=== PATIENT | female | born 1960 | race Caucasian/White ===

== ENCOUNTER → 2020-02-28 | Outpatient (CLI) | payer MEDICARE, OTHER ==
--- NOTE | 2020-02-28 15:24 | P.HPBAR ---
Bariatric H&P - History & Physicial H&P Date: 02/28/20 History & Physicial: Visit/CC: Patient initial contact: Initial weight: Initial weight in pounds: Height: 5 ft 4 in Initial BMI: Last weight: Current weight: 135.488 kg Current weight in pounds: Current BMI: [place] body weight (based on NIH guidelines): Excess body weight loss: The patient is a 59 year-old F who presents for Bariatric Assessment. She is looking into the lap band or sleeve. She has reflux. She takes o meprazole. She can tolerate 2 days off her medication. No gallbladder. No dysphagia. She has hysterectomy. No bowel obstruction. No stomach or esophageal cancer. She has family history of obesity in father, grand parents. She does not want issues. No back pain. She has thrown out her hips. She has knee replacement of both at least 2x on each side. She was antibiotics right knee with osteomyelitis. She was very active in sports. Highest weight is present. She has tried dieting with most weight loss down to 280 pounds. She developed DVT following knee surgery Bariatric Checklist Checklist: Plan: Checklist: EGD: 1. Hiatal hernia: 2. H. Pylori: HgbA1c: Vitamin D: Smoking: Primary care physician referral: Psychiatry clearance: Cardiology clearance: Sleep study: Diet journal: VTE risk score: VTE risk level: Rehab needs at discharge:
[2020-02-28 15:45] VITALS: BP 160/86; PULSE 88; RESP 18; TEMP 97.8; BMI 51.2
== END | disposition home or self-care (01) ==
LOC: BARWHC3 14:57
PROVIDERS: ATTEND Surgery Plastic and Reconstructive Surgery
DX: K21.9 Gastro-esophageal reflux disease without esophagitis (principal); M86.9 Osteomyelitis, unspecified; T81.89XA Other complications of procedures, not elsewhere classified, initial encounter; I82.409 Acute embolism and thrombosis of unspecified deep veins of unspecified lower extremity; Z96.653 Presence of artificial knee joint, bilateral; Z83.49 Family history of other endocrine, nutritional and metabolic diseases; Z79.2 Long term (current) use of antibiotics; Z79.899 Other long term (current) drug therapy
CPT/HCPCS: 99211

== ENCOUNTER → 2020-02-28 | Outpatient (CLI) | payer MEDICARE, OTHER ==
[2020-02-28 18:35] LABS: HGB 13.6 gm/dL (11.4-16.0); MCH 28.8 pg (25.0-35.0); MCHC 33.1 g/dL (31.0-37.0); Mean Platelet Volume 6.7; Platelet Count 256 k/uL (150-450); RBC 4.71 m/uL (3.80-5.40); RDW 13.1 % (11.5-15.5)
[2020-02-28 19:17] LABS: ALT 25 U/L (4-34); AST 23 U/L (14-36); African American GFR (CKD) >90 (>60 ml/min/1.73 sqM); Albumin 4.1 g/dL (3.5-5.0); Alkaline Phosphatase 77 U/L (38-126); Anion Gap 6 mmol/L; Blood Urea Nitrogen 21 mg/dL (7-17); Carbon Dioxide 27 mmol/L (22-30); Chloride 104 mmol/L (98-107); Glucose 129 mg/dL (74-99); Magnesium 2.1 mg/dL (1.6-2.3); Non-African American GFR(CKD) 80 (>60 ml/min/1.73 sqM); Phosphorus 4.3 mg/dL (2.5-4.5); Potassium 4.4 mmol/L (3.5-5.1); Sodium 137 mmol/L (137-145); Total Bilirubin 0.7 mg/dL (0.2-1.3); Total Protein 6.7 g/dL (6.3-8.2)
[2020-02-28 19:54] LABS: Cholesterol 233 mg/dL (<200); HDL Cholesterol 72 mg/dL (40-60); LDL Cholesterol,Calculated 137 mg/dL (0-99); Triglycerides 119 mg/dL (<150)
[2020-02-28 20:08] LABS: Partial Thromboplastin Time 24.7 sec (22.0-30.0); Prothrombin Time 10.1 sec (9.0-12.0)
[2020-02-29 06:52] LABS: % Iron Saturation 21.72 (12.00-45.00); Iron 86 ug/dL (50-170); Total Iron Binding Capacity 396 ug/dL (228-460)
[2020-02-29 07:10] LABS: Folate, Serum 10.6 ng/mL
[2020-03-01 13:17] LABS: Zinc, Serum 83 ug/dL (60-130)
[2020-03-03 02:36] LABS: Selenium 118 mcg/L (63-160)
== END | disposition home or self-care (01) ==
LOC: LABPAT 16:12
PROVIDERS: ATTEND Surgery Plastic and Reconstructive Surgery
DX: D50.8 Other iron deficiency anemias (principal); K90.89 Other intestinal malabsorption; E55.9 Vitamin D deficiency, unspecified; K74.1 Hepatic sclerosis; N19 Unspecified kidney failure; K50.90 Crohn's disease, unspecified, without complications; E66.01 Morbid (severe) obesity due to excess calories
CPT/HCPCS: 80053; 80061; 82306; 82525; 82607; 82728; 82746; 83036; 83540; 83550; 83735; 83970; 84100; 84134; 84255; 84425; 84443; 84590; 84630; 85027; 85610; 85730; 93005

== ENCOUNTER → 2020-05-20 | Outpatient (CLI) | payer MEDICARE, OTHER ==
[2020-05-20 13:11] VITALS: BMI 53.1
== END ==
LOC: BARWHC3 08:59
PROVIDERS: ATTEND Surgery Plastic and Reconstructive Surgery
DX: E66.01 Morbid (severe) obesity due to excess calories (principal); Z71.3 Dietary counseling and surveillance
CPT/HCPCS: 97804

== ENCOUNTER 2020-05-27 07:30 | Day surgery (SDC) | payer MEDICARE, OTHER ==
--- NOTE | 2020-05-27 13:52 | P.GSHP ---
History of Present Illness H&P Date: 05/27/20 CHIEF COMPLAINT: GERD HISTORY OF PRESENT ILLNESS: The patient is a 59-year-old female who presents reports gastroesophageal reflux disease. Upper endoscopy was offered for further evaluation and management. PAST MEDICAL HISTORY: Please see list. PAST SURGICAL HISTORY: Please see list. MEDICATIONS: Please see list. ALLERGIES: Please see list. SOCIAL HISTORY: No illicit drug use FAMILY HISTORY: No reports of Crohn disease or ulcerative colitis. REVIEW OF ORGAN SYSTEMS: CONSTITUTIONAL: No reports of fevers or chills. GI: Denies any blood in stools or constipation. PHYSICAL EXAM: VITAL SIGNS: Stable GENERAL: Well-developed and pleasant in no acute distress. HEENT: No scleral icterus. Extraocular movements grossly intact. Moist buccal mucosa. NECK: Supple without lymphadenopathy. CHEST: Unlabored respirations. Equal bilateral excursions. CARDIOVASCULAR: Regular rate and rhythm. Distal 2+ pulses. ABDOMEN: Soft, nondistended. MUSCULOSKELETAL: No clubbing, cyanosis, or edema. ASSESSMENT: 1. Gastroesophageal reflux disease PLAN: 1. Recommend proceeding with an upper endoscopy Past Medical History Past Medical History: Asthma, Deep Vein Thrombosis (DVT), Fibromyalgia, GERD/Reflux, Hypertension Additional Past Medical History / Comment(s): DVT LT LEG AFTER KNEE REPLACEMENT, LYMPHEDEMA History of Any Multi-Drug Resistant Organisms: None Reported Past Surgical History: Adenoidectomy, Appendectomy, Bladder Surgery, Cholecystectomy, Hysterectomy, Joint Replacement, Orthopedic Surgery, Tonsillectomy Additional Past Surgical History / Comment(s): bilat knee replacements; bilat shoulder surgery; bone removed from right pinky toe; deviated septum; bladder suspension, REMOVAL OF BLOOD CLOT FROM LEFT LEG Past Anesthesia/Blood Transfusion Reactions: Postoperative Nausea & Vomiting (PONV) Additional Past Anesthesia/Blood Transfusion Reaction / Comment(s): "i like to sleep, i do not like to wake up" Smoking Status: Never smoker - Past Family History Sister(s) Family Medical History: Cancer Medications and Allergies Home Medications Medication Instructions Recorded Confirmed Type Albuterol Nebulized [Ventolin 3 ml INHALATION DIRECTED 02/28/20 05/27/20 History Nebulized] Apixaban [Eliquis] 5 mg PO BID 02/28/20 05/27/20 History Cetirizine HCl [Zyrtec] 10 mg PO DAILY 02/28/20 05/27/20 History Cholecalciferol [Vitamin D3 (25 1,000 unit PO DAILY 02/28/20 05/27/20 History Mcg = 1000 Iu)] Gabapentin 600 mg PO TID 02/28/20 05/27/20 History Lisinopril [Prinivil] 10 mg PO DAILY 02/28/20 05/27/20 History Meloxicam 15 mg PO DAILY 02/28/20 05/27/20 History Montelukast [Singulair] 10 mg PO DAILY 02/28/20 05/27/20 History Omeprazole 40 mg PO DAILY 02/28/20 05/27/20 History rOPINIRole HCL [Requip] 0.5 mg PO TID 02/28/20 05/27/20 History traMADol HCl [Ultram] 50 mg PO BID PRN 02/28/20 05/27/20 History Oxybutynin Chloride [Ditropan] 5 mg PO BID 04/22/20 05/27/20 History HYDROcodone/APAP 7.5-325MG [[place] 7.5 mg PO Q6HR PRN 05/27/20 05/27/20 History 7.5-325] Allergies Allergy/AdvReac Type Severity Reaction Status Date / Time Sulfa (Sulfonamide AdvReac Rash/Hives Verified 05/27/20 13:28 Antibiotics)
[2020-05-27] MEDS ORDERED: MIDAZOLAM 2 MG/2 ML VIAL ONE (13:55)
[2020-05-27] MEDS ORDERED: KETAMINE 10 MG/ML 20 ML VIAL ONE (13:55)
[2020-05-27] MEDS ORDERED: LACTATED RINGERS 1,000 ML BAG IV ONE (13:55)
[2020-05-27] MEDS ORDERED: LIDOCAINE 1% INJ 10MG/ML (20 ML MDV) ONE (13:55)
[2020-05-27] MEDS ORDERED: PROPOFOL 10 MG/ML 20 ML VIAL IV ONE (13:55)
[2020-05-27 14:33] VITALS: BP 120/75; PULSE 75; RESP 16
--- NOTE | 2020-05-28 13:42 | P.GSHP ---
History of Present Illness H&P Date: 05/27/20 CHIEF COMPLAINT: GERD HISTORY OF PRESENT ILLNESS: The patient is a 59-year-old female who presents reports gastroesophageal reflux disease. Upper endoscopy was offered for further evaluation and management. PAST MEDICAL HISTORY: Please see list. PAST SURGICAL HISTORY: Please see list. MEDICATIONS: Please see list. ALLERGIES: Please see list. SOCIAL HISTORY: No illicit drug use FAMILY HISTORY: No reports of Crohn disease or ulcerative colitis. REVIEW OF ORGAN SYSTEMS: CONSTITUTIONAL: No reports of fevers or chills. GI: Denies any blood in stools or constipation. PHYSICAL EXAM: VITAL SIGNS: Stable GENERAL: Well-developed and pleasant in no acute distress. HEENT: No scleral icterus. Extraocular movements grossly intact. Moist buccal mucosa. NECK: Supple without lymphadenopathy. CHEST: Unlabored respirations. Equal bilateral excursions. CARDIOVASCULAR: Regular rate and rhythm. Distal 2+ pulses. ABDOMEN: Soft, nondistended. MUSCULOSKELETAL: No clubbing, cyanosis, or edema. ASSESSMENT: 1. Gastroesophageal reflux disease PLAN: 1. Recommend proceeding with an upper endoscopy Past Medical History Past Medical History: Asthma, Deep Vein Thrombosis (DVT), Fibromyalgia, GERD/Reflux, Hypertension Additional Past Medical History / Comment(s): DVT LT LEG AFTER KNEE REPLACEMENT, LYMPHEDEMA History of Any Multi-Drug Resistant Organisms: None Reported Past Surgical History: Adenoidectomy, Appendectomy, Bladder Surgery, Cholecystectomy, Hysterectomy, Joint Replacement, Orthopedic Surgery, Tonsillectomy Additional Past Surgical History / Comment(s): bilat knee replacements; bilat shoulder surgery; bone removed from right pinky toe; deviated septum; bladder suspension, REMOVAL OF BLOOD CLOT FROM LEFT LEG Past Anesthesia/Blood Transfusion Reactions: Postoperative Nausea & Vomiting (PONV) Additional Past Anesthesia/Blood Transfusion Reaction / Comment(s): "i like to sleep, i do not like to wake up" Smoking Status: Never smoker - Past Family History Sister(s) Family Medical History: Cancer Medications and Allergies Home Medications Medication Instructions Recorded Confirmed Type Albuterol Nebulized [Ventolin 3 ml INHALATION DIRECTED 02/28/20 05/27/20 History Nebulized] Apixaban [Eliquis] 5 mg PO BID 02/28/20 05/27/20 History Cetirizine HCl [Zyrtec] 10 mg PO DAILY 02/28/20 05/27/20 History Cholecalciferol [Vitamin D3 (25 1,000 unit PO DAILY 02/28/20 05/27/20 History Mcg = 1000 Iu)] Gabapentin 600 mg PO TID 02/28/20 05/27/20 History Lisinopril [Prinivil] 10 mg PO DAILY 02/28/20 05/27/20 History Meloxicam 15 mg PO DAILY 02/28/20 05/27/20 History Montelukast [Singulair] 10 mg PO DAILY 02/28/20 05/27/20 History Omeprazole 40 mg PO DAILY 02/28/20 05/27/20 History rOPINIRole HCL [Requip] 0.5 mg PO TID 02/28/20 05/27/20 History traMADol HCl [Ultram] 50 mg PO BID PRN 02/28/20 05/27/20 History Oxybutynin Chloride [Ditropan] 5 mg PO BID 04/22/20 05/27/20 History HYDROcodone/APAP 7.5-325MG [[place] 7.5 mg PO Q6HR PRN 05/27/20 05/27/20 History 7.5-325] Allergies Allergy/AdvReac Type Severity Reaction Status Date / Time Sulfa (Sulfonamide AdvReac Rash/Hives Verified 05/27/20 13:28 Antibiotics) Surgical - Exam Vital Signs Temp Pulse Resp BP Pulse Ox 98.9 F 78 18 133/65 96 05/27/20 13:36 05/27/20 13:36 05/27/20 13:36 05/27/20 13:36 05/27/20 13:36
--- NOTE | 2020-05-28 13:43 | P.PCN ---
Date of Procedure: 05/27/20 Description of Procedure: PREOPERATIVE DIAGNOSIS: Gastroesophageal reflux disease. Morbid obesity. POSTOPERATIVE DIAGNOSIS: Morbid obesity. Gastritis. Gastroesophageal reflux disease. Gastric polyp OPERATION: Esophagogastroduodenoscopy with biopsies along antrum. SURGEON: Marta Bee MD ANESTHESIA: MAC. INDICATIONS: The patient is a 59-year-old female who presents with a history of reflux disease. Benefits and risks of the procedure were described. Informed consent was obtained. DESCRIPTION: The patient was brought into the endoscopy suite and laid in the left lateral decubitus position. An Olympus gastroscope was passed along the posterior oropharynx down to the distal esophagus where the squamocolumnar junction was encountered at 36 cm from the incisors. The stomach was entered and no bile reflux was found. Additional findings are listed below. Biopsies with cold forceps were obtained of the antrum. The first through third portion of the duodenum was examined and unremarkable. Retroflexion of the scope confirmed Hill grade 2 lower esophageal valve. The squamocolumnar junction demonstrated LA grade B erosive esophagitis. The stomach was desufflated. The patient tolerated the procedure well. FINDINGS: Squamocolumnar junction 36 cm from the incisors. Diaphragmatic hiatus at 36 cm. Hill grade 2 lower esophageal valve. LA grade B erosive esophagitis. No active duodenitis. Chronic gastritis Diffuse gastric polyps RECOMMENDATIONS: Upper endoscopy as needed. Plan - Discharge Summary New Discharge Prescriptions: No Action Cholecalciferol [Vitamin D3 (25 Mcg = 1000 Iu)] 1,000 unit PO DAILY Cetirizine HCl [Zyrtec] 10 mg PO DAILY rOPINIRole HCL [Requip] 0.5 mg PO TID Omeprazole 40 mg PO DAILY Gabapentin 600 mg PO TID Apixaban [Eliquis] 5 mg PO BID Montelukast [Singulair] 10 mg PO DAILY Meloxicam 15 mg PO DAILY Lisinopril [Prinivil] 10 mg PO DAILY traMADol HCl [Ultram] 50 mg PO BID PRN PRN Reason: Pain Albuterol Nebulized [Ventolin Nebulized] 3 ml INHALATION DIRECTED Oxybutynin Chloride [Ditropan] 5 mg PO BID HYDROcodone/APAP 7.5-325MG [[place] 7.5-325] 7.5 mg PO Q6HR PRN PRN Reason: Moderate Pain Discharge Medication List Albuterol Nebulized [Ventolin Nebulized] 3 ml INHALATION DIRECTED 02/28/20 [History] Apixaban [Eliquis] 5 mg PO BID 02/28/20 [History] Cetirizine HCl [Zyrtec] 10 mg PO DAILY 02/28/20 [History] Cholecalciferol [Vitamin D3 (25 Mcg = 1000 Iu)] 1,000 unit PO DAILY 02/28/20 [History] Gabapentin 600 mg PO TID 02/28/20 [History] Lisinopril [Prinivil] 10 mg PO DAILY 02/28/20 [History] Meloxicam 15 mg PO DAILY 02/28/20 [History] Montelukast [Singulair] 10 mg PO DAILY 02/28/20 [History] Omeprazole 40 mg PO DAILY 02/28/20 [History] rOPINIRole HCL [Requip] 0.5 mg PO TID 02/28/20 [History] traMADol HCl [Ultram] 50 mg PO BID PRN 02/28/20 [History] Oxybutynin Chloride [Ditropan] 5 mg PO BID 04/22/20 [History] HYDROcodone/APAP 7.5-325MG [[place] 7.5-325] 7.5 mg PO Q6HR PRN 05/27/20 [History] Follow up Appointment(s)/Referral(s): Marta Bee MD [STAFF PHYSICIAN] - 06/05/20 1:30 pm Patient Instructions/Handouts: *Surgery [facility] - (Anesthesia) Endoscopy Discharge Instructions, Gastric Polyps (DC) Discharge Disposition: HOME SELF-CARE
== END 2020-05-27 14:48 | disposition home or self-care (01) ==
LOC: ORWHC2ENDO 07:30
PROVIDERS: ATTEND Surgery Plastic and Reconstructive Surgery
DX: K29.50 Unspecified chronic gastritis without bleeding (principal); K21.00 Gastro-esophageal reflux disease with esophagitis, without bleeding; K31.7 Polyp of stomach and duodenum; J45.909 Unspecified asthma, uncomplicated; M79.7 Fibromyalgia; Z80.9 Family history of malignant neoplasm, unspecified; E66.01 Morbid (severe) obesity due to excess calories; I10 Essential (primary) hypertension; Z79.01 Long term (current) use of anticoagulants; Z79.1 Long term (current) use of non-steroidal anti-inflammatories (NSAID); Z79.899 Other long term (current) drug therapy; Z86.718 Personal history of other venous thrombosis and embolism; Z88.2 Allergy status to sulfonamides; Z96.653 Presence of artificial knee joint, bilateral
CPT/HCPCS: 88305; 43239; J2250; J2001; J2704

== ENCOUNTER → 2020-06-05 | Outpatient (CLI) | payer MEDICARE, OTHER ==
[2020-06-05 14:58] VITALS: BP 167/102; PULSE 73; RESP 20; TEMP 98.8; BMI 52.7
--- NOTE | 2020-06-05 15:12 | P.PN ---
Subjective Progress Note Date: 06/05/20 She comes in for sleeve gastrectomy. She completed her upper endoscopy without contra-indications. Needs PCP letter and psych. Objective - Vital Signs Vital signs: Vital Signs Temp 98.8 F 06/05/20 14:49 Pulse 73 06/05/20 14:49 Resp 20 06/05/20 14:49 BP 167/102 06/05/20 14:49 Pulse Ox Intake & Output 06/04/20 06/05/20 06/05/20 18:59 06:59 18:59 Weight 139.253 kg
== END ==
LOC: BARWHC3 13:35
PROVIDERS: ATTEND Surgery Plastic and Reconstructive Surgery
DX: E66.01 Morbid (severe) obesity due to excess calories (principal); Z46.51 Encounter for fitting and adjustment of gastric lap band; Z98.84 Bariatric surgery status
CPT/HCPCS: 99211

== ENCOUNTER → 2020-07-01 | Outpatient (CLI) | payer MEDICARE, OTHER ==
[2020-07-01 16:38] LABS: Basophils % (A) 1 %; Eosinophils # (A) 0.1 k/uL (0-0.7); Eosinophils % (A) 2 %; HCT 39.8 % (34.0-46.0); HGB 13.8 gm/dL (11.4-16.0); Lymphocytes # (A) 0.9 k/uL (1.0-4.8); Lymphocytes % (A) 21 %; MCH 29.7 pg (25.0-35.0); MCHC 34.6 g/dL (31.0-37.0); MCV 85.6 fL (80.0-100.0); Mean Platelet Volume 6.9; Monocytes # (A) 0.2 k/uL (0-1.0); Monocytes % (A) 5 %; Neutrophils % (A) 70 %; Platelet Count 232 k/uL (150-450); RBC 4.65 m/uL (3.80-5.40); RDW 13.3 % (11.5-15.5); WBC 4.3 k/uL (3.8-10.6)
[2020-07-01 17:55] LABS: Albumin 4.6 g/dL (3.5-5.0); Calcium 9.6 mg/dL (8.4-10.2); Potassium 4.5 mmol/L (3.5-5.1); Total Bilirubin 0.9 mg/dL (0.2-1.3); Total Protein 7.2 g/dL (6.3-8.2)
== END | disposition home or self-care (01) ==
LOC: LABPAT 15:21
PROVIDERS: ATTEND Surgery Plastic and Reconstructive Surgery
DX: Z01.818 Encounter for other preprocedural examination (principal)
CPT/HCPCS: 36415; 80053; 85025; 86850; 86900; 86901

== ENCOUNTER 2020-07-05 12:17 | Inpatient (IN) | payer MEDICARE, OTHER ==
--- NOTE | 2020-07-05 06:00 | P.GSHP ---
History of Present Illness H&P Date: 07/05/20 DATE OF SERVICE: 07/05/2020 CHIEF COMPLAINT: Morbid obesity HISTORY OF PRESENT ILLNESS: Sybil Rodriguez is a 59-year-old female who comes with lifelong morbid obesity. She is looking into sleeve gastrectomy. She has gastroesophageal reflux. She takes omeprazole. Her highest weight is present. She has completed bariatric medical supervised weight loss, education, including medical and cardiac risk assessments. At height of 5 feet 4 inches, her ideal body weight is 144 pounds. She comes in 298 pounds. Her body mass index is 51.3. She is 154 pounds overweight. PAST MEDICAL HISTORY: 1. Morbid obesity due to excess calories 2. Body mass index of 51.3, initial 3. Chronic obstructive pulmonary disease 4. Fibromylagia 5. Asthma 6. Gastroesophageal reflux disease 7. Hypertensive heart disease. 8. Osteoarthritis of the knees. 9. Postop nausea and vomiting 10. Osteoarthritis of the hips 11. Osteomyelitis of the knees. PAST SURGICAL HISTORY: 1. Adenoidectomy 2. Appendectomy 3. Bladder suspension 4. Cholecystectomy 5. Hysterectomy 6. Bilateral knee replacement 7. Tonsillectomy 8. Bilateral shoulder repair 9. Repair of deviated septum HOME MEDICATIONS: Home Medications Medication Instructions Recorded Confirmed Albuterol Nebulized [Ventolin 3 ml INHALATION DIRECTED 02/28/20 04/22/20 Nebulized] Apixaban [Eliquis] 5 mg PO BID 02/28/20 04/22/20 Cetirizine HCl [Zyrtec] 10 mg PO DAILY 02/28/20 04/22/20 Cholecalciferol [Vitamin D3 (25 1,000 unit PO DAILY 02/28/20 04/22/20 Mcg = 1000 Iu)] Gabapentin 600 mg PO TID 02/28/20 04/22/20 Imipramine [Tofranil] 10 mg PO TID 02/28/20 04/22/20 Lisinopril [Prinivil] 10 mg PO DAILY 02/28/20 04/22/20 Meloxicam 15 mg PO DAILY 02/28/20 04/22/20 Montelukast [Singulair] 10 mg PO DAILY 02/28/20 04/22/20 Omeprazole 40 mg PO DAILY 02/28/20 04/22/20 rOPINIRole HCL [Requip] 0.5 mg PO TID 02/28/20 04/22/20 traMADol HCl [Ultram] 50 mg PO BID PRN 02/28/20 04/22/20 Oxybutynin Chloride [Ditropan] 5 mg PO BID 04/22/20 04/22/20 ALLERGIES: Allergies Allergy/AdvReac Type Severity Reaction Status Date / Time Sulfa (Sulfonamide AdvReac Rash/Hives Verified 04/22/20 15:45 Antibiotics) SOCIAL HISTORY: Past tobacco use. FAMILY HISTORY: No family history of ulcerative colitis disease or Crohn's disease. Family history of morbid obesity. No lupus in the family. No reports of stomach or esophageal cancer. REVIEW OF ORGAN SYSTEMS: CONSTITUTIONAL: At height of 5 feet 4 inches, her ideal body weight is 144 pounds. She comes in 298 pounds. Her body mass index is 51.3. She is 154 pounds overweight. HEENT: Denies any active troubles with vision or hearing. ENDOCRINE: Denies diabetes. No hypothyroidism. CARDIOVASCULAR: Denies past reports of palpitations or heart attacks or chest pain. Has hypertensive heart disease. RESPIRATORY: Has asthma. Has chronic obstructive pulmonary disease. GASTROINTESTINAL: Denies any bright red blood per rectum. No diarrhea. No constipation. Has gastroesophageal reflux disease. GENITOURINARY: Has bladder urgency. No recent blood in urine MUSCULOSKELETAL: Has lower back pain and joint pain. Has osteoarthritis of the knees. History of bilateral lower extremity edema. NEURO: No headaches. No seizure disorders. Has neuropathy. PSYCH: Has depression. No suicidal ideation. RHEUMATOLOGIC: No lupus. No rheumatoid arthritis. HEMATOLOGIC: Denies any abnormal bleeding or bruising. DVT following knee surgery. On blood thinners. SKIN: No rash. No skin cancer. PHYSICAL EXAM: VITAL SIGNS: Height 5 foot 4 inches, weight 298 pounds. BMI 51.3 Intake & Output 07/04/20 07/04/20 07/05/20 06:59 18:59 06:59 Weight 132.903 kg GENERAL: Well-developed in no acute distress. HEENT: No scleral icterus. Extraocular movements grossly intact. Hears conversational speech. No nasal drainage. NECK: Supple without lymphadenopathy. CHEST: Nonlabored respirations with equal bilateral excursions. CARDIOVASCULAR: Regular rate and regular rhythm. Distal 2+ pulses. ABDOMEN: Obese, soft, nontender, nondistended. MUSCULOSKELETAL: No clubbing, cyanosis. NEURO: No focal or lateralizing signs. Cranial nerves 2 through 12 grossly within normal limits. PSYCH: Appropriate affect. Alert and oriented to person, place and time. SKIN: Good skin turgor. Well perfused. ASSESSMENT: 1. Morbid obesity due to excess calories 2. Body mass index of 51.3, initial 3. Chronic obstructive pulmonary disease 4. Fibromylagia 5. Asthma 6. Gastroesophageal reflux disease 7. Hypertensive heart disease. 8. Osteoarthritis of the knees. 9. Postop nausea and vomiting 10. Osteoarthritis of the hips 11. Osteomyelitis of the knees. PLAN: 1. Bariatric options between a sleeve, band and a [place]-en-Y gastric bypass were reviewed in detail. The patient elected for a sleeve gastrectomy. Robotic assisted approach described. 2. The [place] [facility] Data was also reviewed with benefits and risks as described. 3. An 8 page second-generation bariatric consent form was reviewed in detail including potential of bleeding, infection, leaks, adequate weight loss, nutritional deficiencies which the patient demonstrated understanding of the risks. 4. A 2 week high-protein low caloric 800 kcal diet described to address hepatomegaly. 5. Preoperative labs including complete metabolic panel and CBC with type and screen recommended. 6. DVT prophylaxis per [place] [facility]. 7. Antibiotic prophylaxis. 8. Inpatient hospitalization anticipated for more than 2 nights. 9. All questions and concerns were addressed with the patient. 10. She is elevated risk with history of DVT and blood thinners for bleeding and complications. Past Medical History Past Medical History: Asthma, Deep Vein Thrombosis (DVT), Fibromyalgia, GERD/Reflux, Hypertension Additional Past Medical History / Comment(s): DVT LT LEG AFTER KNEE REPLACEMENT, LYMPHEDEMA; History of Any Multi-Drug Resistant Organisms: None Reported Past Surgical History: Adenoidectomy, Appendectomy, Bladder Surgery, Cholecystectomy, Hysterectomy, Joint Replacement, Orthopedic Surgery, Tonsil lectomy Additional Past Surgical History / Comment(s): bilat knee replacements; bilat shoulder surgery; bone removed from right pinky toe; deviated septum; bladder suspension, REMOVAL OF BLOOD CLOT FROM LEFT LEG, EGD Past Anesthesia/Blood Transfusion Reactions: Postoperative Nausea & Vomiting (PONV) Additional Past Anesthesia/Blood Transfusion Reaction / Comment(s): "i like to sleep, i do not like to wake up" Smoking Status: Never smoker - Past Family History Sister(s) Family Medical History: Cancer Medications and Allergies Home Medications Medication Instructions Recorded Confirmed Type Albuterol Nebulized [Ventolin 3 ml INHALATION DIRECTED 02/28/20 07/04/20 History Nebulized] Apixaban [Eliquis] 5 mg PO BID 02/28/20 07/04/20 History Cetirizine HCl [Zyrtec] 10 mg PO DAILY 02/28/20 07/04/20 History Cholecalciferol [Vitamin D3 (25 1,000 unit PO DAILY 02/28/20 07/04/20 History Mcg = 1000 Iu)] Gabapentin 600 mg PO TID 02/28/20 07/04/20 History Lisinopril [Prinivil] 10 mg PO DAILY 02/28/20 07/04/20 History Meloxicam 15 mg PO DAILY 02/28/20 07/04/20 History Montelukast [Singulair] 10 mg PO DAILY 02/28/20 07/04/20 History Omeprazole 40 mg PO DAILY 02/28/20 07/04/20 History rOPINIRole HCL [Requip] 0.5 mg PO TID 02/28/20 07/04/20 History traMADol HCl [Ultram] 50 mg PO BID PRN 02/28/20 07/04/20 History HYDROcodone/APAP 7.5-325MG [[place] 7.5 mg PO Q6HR PRN 05/27/20 07/04/20 History 7.5-325] Darifenacin Hydrobromide 15 mg PO DAILY 06/05/20 07/04/20 History [Darifenacin ER] metFORMIN HCL [Glucophage] 500 mg PO BID 06/05/20 07/04/20 History Allergies Allergy/AdvReac Type Severity Reaction Status Date / Time Sulfa (Sulfonamide AdvReac Rash/Hives Verified 07/04/20 11:17 Antibiotics)
[~2020-07-05 12:17] MED LIST: ACETAMINOPHEN TAB 500 MG TAB PO PRN; CHLORHEXIDINE GLUCONATE 15 ML CUP MUCOUS MEM PRN; DEXAMETHASONE SOD PHOSPHATE 4 MG/ML 1 ML VIAL IV ONE; ENOXAPARIN 40 MG/0.4 ML SYRINGE SQ PRN; GABAPENTIN 300 MG CAP PO PRN; HYDROmorphone 0.5 MG/0.5 ML SYRINGE IVP PRN; LIDOCAINE 1% (10MG/ML) FOR IV START INTRADERMA PRN; MIDAZOLAM 2 MG/2 ML VIAL IV PRN; ONDANSETRON 4 MG/2 ML VIAL IVP ONE; PANTOPRAZOLE 40 MG/10 ML VIAL IVP PRN; SCOPOLAMINE 1.5MG/72HR PATCH TRANSDERM PRN; ceFAZolin 3 GM in SODIUM CHLORIDE 0.9% 100 ML IVPB PRN
[2020-07-05 13:20] LABS: Glucose,Whole Blood 113 mg/dL (75-99)
[2020-07-05] MEDS: LACTATED RINGERS 1,000 ML IV SCH (13:20)
[2020-07-05] MEDS ORDERED: MIDAZOLAM 2 MG/2 ML VIAL IVP ONE (13:40)
--- NOTE | 2020-07-05 13:56 | P.ANPRN ---
Procedure Note - Anesthesia - Nerve Block Performed Bilateral Transversus Abdominis Single Time Out Performed: Yes Date of Procedure: 07/05/20 Procedure Start Time: 13:39 Procedure Stop Time: 13:45 Location of Patient: PreOp Indication: Acute Post-Operative Pain, Dx/Pain Location, Requested by Surgeon Sedation Type: Sedate with meaningful contact maintained Preparation: Sterile Prep Position: Supine Catheter: None Needle Types: [place] Needle Gauge: 21 Ultrasound used to visualize needle placement: Yes Ultrasound used to observe medication spread: Yes Injectate: 0.5% Ropivacaine (see comment for volume) (30cc total) Blood Aspirated: No Pain Paresthesia on Injection Noted: No Resistance on Injection: Normal Image Stored and Saved: Yes Events: Uneventful and Well Tolerated
[2020-07-05 14:02] LABS: ALT 43 U/L (4-34); AST 40 U/L (14-36); African American GFR (CKD) >90 (>60 ml/min/1.73 sqM); Albumin 4.5 g/dL (3.5-5.0); Alkaline Phosphatase 72 U/L (38-126); Anion Gap 8 mmol/L; Blood Urea Nitrogen 18 mg/dL (7-17); Calcium 9.2 mg/dL (8.4-10.2); Carbon Dioxide 22 mmol/L (22-30); Chloride 107 mmol/L (98-107); Glucose 105 mg/dL (74-99); Non-African American GFR(CKD) >90 (>60 ml/min/1.73 sqM); Potassium 4.6 mmol/L (3.5-5.1); Sodium 137 mmol/L (137-145); Total Bilirubin 1.3 mg/dL (0.2-1.3); Total Protein 7.1 g/dL (6.3-8.2)
[2020-07-05 14:10] LABS: INR 1.1 (<1.2); Prothrombin Time 11.2 sec (9.0-12.0)
[2020-07-05] MEDS ORDERED: NEOSTIGMINE 1 MG/ML 10 ML VIAL ONE (14:25)
[2020-07-05] MEDS ORDERED: ROPIVACAINE 5 MG/ML 30 ML VIAL ONE (14:25)
[2020-07-05] MEDS ORDERED: MIDAZOLAM 2 MG/2 ML VIAL ONE (14:25)
[2020-07-05] MEDS ORDERED: SUCCINYLCHOLINE CHLORIDE VIAL 200 MG/10 ML VIAL IV ONE (14:25)
[2020-07-05] MEDS ORDERED: GLYCOPYRROLATE 0.2 MG/ML 2 ML VIAL ONE (14:25)
[2020-07-05] MEDS ORDERED: PROPOFOL 10 MG/ML 20 ML VIAL IV ONE (14:25)
[2020-07-05] MEDS ORDERED: fentaNYL (PF) 50 MCG/ML 2 ML AMP ONE (14:25)
[2020-07-05] MEDS ORDERED: PHENYLEPHRINE-0.9% NACL SYG 1,000 MCG/10 ML SYRINGE ONE (14:25)
[2020-07-05] MEDS ORDERED: ROCURONIUM 10 MG/ML (5 ML VIAL) IV ONE (14:25)
[2020-07-05] MEDS ORDERED: BUPIVACAINE (PF) 0.5% 30 ML VIAL SQ ONE (15:33)
[2020-07-05] MEDS ORDERED: LACTATED RINGERS 1,000 ML IV ONE (16:00)
[2020-07-05] MEDS ORDERED: HYDROcodone/APAP 7.5-325MG 1 EACH TAB PO PRN (16:17)
[2020-07-05] MEDS ORDERED: traMADol 50 MG TAB PO PRN (16:17)
[2020-07-05] MEDS ORDERED: HYOSCYAMINE ORAL DROPS 1.875 MG/15 ML BOTTLE PO PRN (16:19)
[2020-07-05] MEDS ORDERED: DEXAMETHASONE SOD PHOSPHATE 10 MG/ML 1 ML VIAL IV PRN (16:19)
[2020-07-05] MEDS ORDERED: diphenhydrAMINE 50 MG/ML 1 ML VIAL IVP PRN (16:19)
[2020-07-05] MEDS ORDERED: DEXAMETHASONE SOD PHOSPHATE 4 MG/ML 1 ML VIAL IV PRN (16:19)
[2020-07-05] MEDS ORDERED: NALOXONE 0.4 MG/ML 1 ML VIAL IV PRN (16:19)
[2020-07-05] MEDS ORDERED: SODIUM CHLORIDE 0.9% 2,000 ML IV ONE (16:22)
[2020-07-05] MEDS: fentaNYL (PF) 50 MCG/ML 2 ML AMP IVP ONE ×2 (16:30→16:39)
[2020-07-05] MEDS ORDERED: ALBUTEROL NEBULIZED 1.25 MG/3 ML INHALATION SCH (16:30)
--- NOTE | 2020-07-05 16:31 | P.OP ---
Date of Procedure: 07/05/20 Description of Procedure: SURGEON: GLENN LOUIS MD PREOPERATIVE DIAGNOSES: 1. Morbid obesity due to excess calories 2. Body mass index of 51.3, initial 3. Chronic obstructive pulmonary disease 4. Fibromylagia 5. Asthma 6. Gastroesophageal reflux disease 7. Hypertensive heart disease. 8. Osteoarthritis of the knees. 9. Postop nausea and vomiting 10. Osteoarthritis of the hips 11. Osteoarthritis of the knees. POSTOPERATIVE DIAGNOSES: 1. Morbid obesity due to excess calories 2. Body mass index of 51.3, initial 3. Chronic obstructive pulmonary disease 4. Fibromylagia 5. Asthma 6. Gastroesophageal reflux disease 7. Hypertensive heart disease. 8. Osteoarthritis of the knees. 9. Postop nausea and vomiting 10. Osteoarthritis of the hips 11. Osteoarthritis of the knees. 12. Severe epigastric right upper quadrant peritoneal adhesions 12. Severe pelvic adhesions 13. Hepatomegaly with fatty liver disease OPERATION: 1. Robotic assisted daVinci Xi laparoscopic sleeve gastrectomy with 40-Albanian bougie, multiport. 2. Intraoperative esophagogastroduodenoscopy. ANESTHESIA: Gen. local anesthetic ESTIMATED BLOOD LOSS: 10 mL SPECIMENS REMOVED: Sleeve gastrectomy COMPLICATIONS: None. FINDINGS: 1. Negative intraoperative esophagogastrojejunoscopy leak test. 2. Hepatomegaly with fatty liver disease 3. Total of 6 staplers used including 5 - 60 mm green robot shantelle and 1 - 60 mm blue robot loads used to create the gastric sleeve. 4. Sleeve gastrectomy, 28 x 5 cm INDICATIONS: Sybil Rodriguez is a 59-year-old female who comes with lifelong morbid obesity. She is looking into the sleeve gastrectomy. She has completed bariatric medical supervised weight loss, education, including medical and cardiac risk assessments. At height of 5 feet 4 inches, her ideal body weight is 144 pounds. She comes in 295 pounds from 298 pounds. Her body mass index is 51.3. She is 154 pounds overweight. All surgical options for morbid obesity had been described using the [place] bariatric surgery collaborative comorbidity resolution including complication risk score. A second-generation bariatric consent form was described in detail including the possibility of protein malnutrition, leaks, gastric stricture, venous thrombosis, gastroesophageal reflux disease, need for further surgery for which she demonstrated understanding. Benefits and risks of the procedure were described at length. Informed consent was obtained. DESCRIPTION: The patient was brought into the operating room theater. Preoperatively she had received Lovenox subcutaneously for DVT prophylaxis. Additionally she had Peridex oral solution as an oral decontaminant. After general induction, the abdomen was prepped and draped in standard sterile fashion. An Ioban draping was placed along the abdomen. A robotic da Lit Xi system was prepped and primed. At 15 cm from the xiphoid, proposed port sites were marked with indelible marker along the anterior axillary line bilaterally, mid axillary line bilaterally with each ports were marked 10 to 15 cm from each other. The manufacturing assistant port was marked along the left lateral abdominal wall. The robotic stapler port was marked for the right midclavicular line. A 5 mm 0 degrees laparoscopic trocar entry was performed along the left upper quadrant. The abdomen was insufflated to 15 mmHg pressure was tolerated well. Diagnostic laparoscopy demonstrated no injury to bowel, viscera, or mesentery. Moderate hepatomegaly with fatty liver disease was identified. Severe right upper quadrant greater omental to abdominal adhesions including lower pelvic adhesions were identified involving small bowel. The adhesions were undisturbed. A 8 mm port was placed along the left upper abdominal wall after exchanging the 5 mm port. A separate 8 mm port was placed along the left lateral abdominal wall. Please note that the ports were placed at least 20 cm away from the target anatomy. Care was taken to check each robotic arms were safely away from collision with the bed or the patient. At the epigastrium, a medium sized Jono liver retractor was placed under direct visualization with the [place] Technician placed under the right shoulder of the patient. Next, 12-mm robot stapler port was placed to the left of the midline. The camera 8-mm port was maintained along the epigastrium. The patient was repositioned in reverse Trendelenburg position at 21-degrees after lowering the bed. The robot was docked along the left side of the patient. Using a grasper for arm 4, a vessel sealer for arm 3, including grasper for arm 1, the robotic system was docked and primed as described. Instruments were interchanged by the manufacturing assistant for stapler loads. The camera was placed at 30- degrees down. I had sat at the console. The pylorus was identified and 6 cm proximally along the greater curvature of the stomach, the short gastrics were mobilized upwards to the angle of His using a vessel sealer. Hemostasis was excellent during this portion of the procedure. Next, the upper pole of the stomach was adherent to the left kristi, which was gently dissected free using atraumatic grasper. I went to the head of the bed and placed 40-Albanian blunt bougie into the stomach. The bougie was readjusted by the nurse online communications manager. Robotic stapler green load 60 mm 5 followed by blue 60 mm x 1 loads were used to create the sleeve. Initial firing was across the antrum of the stomach towards the angle of His. The staple line was linear without corkscrewing. The space from the angularis incisura of the sleeve was approximately 4 cm. I then went to the head of the bed to perform the intraoperative esophagogastroduodenoscopy leak test. The bougie was withdrawn. The upper pole of the stomach was bathed using normal saline solution. The scope was withdrawn with careful inspection along the staple line for which no leaks were found along the entire length. Additionally,the sleeve was completely hemostatic without any encroachment along the angularis incisura. Its topology was a soft "J". No stricture was encountered upon placement of the scope. The GI tract was desufflated. The patient tolerated this portion of the procedure well. The scope was completely withdrawn. The robot was undocked. I then rescrubbed into case, whereby the irrigation fluid was aspirated from the abdominal cavity. Tisseel fibrin sealant was placed along the entire staple length. Once dried the Jono liver retractor was removed. Attention was now brought to removal of the specimen. The distal end of the sleeve gastrectomy specimen was brought out through the 12 mm port at the left upper quadrant. The specimen was gently removed en total. No contamination had occurred during this process. All instruments and pneumoperitoneum including irrigation fluid was removed from the abdominal cavity. The 12 mm port site was closed using 0-Vicryl and Karel Angulo and irrigated with diluted hydrogen peroxide. The final incisions were closed using subcuticular interrupted suture of 4-0 Monocryl. Exofin was applied to the skin once the skin had been cleansed. OptiFoam dressing was placed along the stomach extraction site. The sleeve specimen was measured and checked also for leaks which none were found. At the end of the procedure, needle, sponge, and instrument count was verified correct by the surgical technologist. The patient was taken to the postanesthesia care unit in stable condition. She had tolerated the procedure well. Intraoperative films and findings were reviewed with the patient's family.
[2020-07-05] MEDS: ONDANSETRON 4 MG/2 ML VIAL IVP SCH ×2 (16:42→22:42)
[2020-07-05] MEDS ORDERED: ACETAMINOPHEN IV (For NPO) 1,000 MG in EMPTY BAG 1 BAG IVPB SCH (19:00)
[2020-07-05] MEDS: GABAPENTIN 300 MG CAP PO SCH (20:43)
[2020-07-05] MEDS: SIMETHICONE 40 MG/0.6 ML DROPS 2,000 MG/30 ML BOTTLE PO SCH ×2 (20:43→22:52)
[2020-07-05 20:44] LABS: Glucose,Whole Blood 181 mg/dL (75-99)
[2020-07-05] MEDS: ceFAZolin 3 GM in SODIUM CHLORIDE 0.9% 100 ML IVPB SCH (20:46)
[2020-07-05] MEDS: ALBUTEROL NEBULIZED 2.5 MG/3 ML INHALATION SCH (21:00)
[2020-07-05] MEDS: ACETAMINOPHEN IV (For NPO) 1,000 MG in EMPTY BAG 1 BAG IVPB SCH (22:05)
[2020-07-05] MEDS: HYDROmorphone 1 MG/ML 1 ML SYRINGE IVP PRN (22:39)
[2020-07-05] MEDS: 0.9% NACL WITH KCL 20 MEQ/L 1,000 ML IV SCH (23:00)
[2020-07-06] MEDS: 0.9% NACL WITH KCL 20 MEQ/L 1,000 ML IV SCH ×2 (03:09→07:54)
[2020-07-06] MEDS: LACTATED RINGERS 1,000 ML IV SCH (03:09)
[2020-07-06] MEDS: HYDROmorphone 1 MG/ML 1 ML SYRINGE IVP PRN ×2 (04:20→07:52)
[2020-07-06] MEDS: ACETAMINOPHEN IV (For NPO) 1,000 MG in EMPTY BAG 1 BAG IVPB SCH ×2 (05:51→12:27)
[2020-07-06] MEDS: ONDANSETRON 4 MG/2 ML VIAL IVP SCH ×2 (05:53→12:27)
[2020-07-06] MEDS: ceFAZolin 3 GM in SODIUM CHLORIDE 0.9% 100 ML IVPB SCH (05:53)
[2020-07-06 07:05] LABS: Glucose,Whole Blood 105 mg/dL (75-99)
[2020-07-06] MEDS ORDERED: 0.9% NACL WITH KCL 20 MEQ/L 1,000 ML IV SCH (08:00)
[2020-07-06] MEDS: SIMETHICONE 40 MG/0.6 ML DROPS 2,000 MG/30 ML BOTTLE PO SCH ×2 (08:04→12:34)
[2020-07-06 08:15] VITALS: RESP 18
--- NOTE | 2020-07-06 08:51 | XR ---
EXAMINATION TYPE: XR KUB DATE OF EXAM: 07/06/2020 8:44 AM CLINICAL HISTORY: Morbid obesity, gastric sleeve surgery yesterday. TECHNIQUE: 3 Upright KUB images of the abdomen are obtained after patient drank 50 cc of Isovue-370. COMPARISON: None. FINDINGS: Some residual contrast in the distal esophagus. There is contrast through gastric sleeve in to the antrum and duodenal sweep. Initial image obtained shows this finding with slight distal progre ssion on later images. No contrast outside bowel loops to suggest leak. IMPRESSION: No identified leak or significant obstruction status post gastric sleeve surgery yesterjanna vela
[2020-07-06] MEDS ORDERED: ENOXAPARIN 40 MG/0.4 ML SYRINGE SQ SCH (09:00)
[2020-07-06] MEDS ORDERED: TROSPIUM CHLORIDE 20 MG TABLET PO SCH (09:00)
[2020-07-06] MEDS ORDERED: PANTOPRAZOLE 40 MG/10 ML VIAL IV SCH (09:00)
[2020-07-06] MEDS ORDERED: MONTELUKAST 10 MG TAB PO SCH (09:00)
[2020-07-06] MEDS ORDERED: LORATADINE 10 MG TAB PO SCH (09:00)
[2020-07-06] MEDS ORDERED: lisinopriL 10 MG TAB PO SCH (09:00)
[2020-07-06] MEDS: ALBUTEROL NEBULIZED 2.5 MG/3 ML INHALATION SCH ×2 (09:09→12:43)
[2020-07-06 09:26] LABS: Basophils % (A) 0 %; Eosinophils # (A) 0.1 k/uL (0-0.7); Eosinophils % (A) 1 %; HCT 38.8 % (34.0-46.0); HGB 13.5 gm/dL (11.4-16.0); Lymphocytes % (A) 16 %; MCH 29.8 pg (25.0-35.0); MCHC 34.8 g/dL (31.0-37.0); MCV 85.7 fL (80.0-100.0); Mean Platelet Volume 6.9; Monocytes # (A) 0.3 k/uL (0-1.0); Monocytes % (A) 5 %; Neutrophils # (A) 4.7 k/uL (1.3-7.7); Neutrophils % (A) 77 %; Platelet Count 215 k/uL (150-450); RBC 4.53 m/uL (3.80-5.40); RDW 13.3 % (11.5-15.5); WBC 6.1 k/uL (3.8-10.6)
[2020-07-06] MEDS: GABAPENTIN 300 MG CAP PO SCH (10:18)
[2020-07-06 11:29] LABS: African American GFR (CKD) 109.1 (60.0-200.0); Anion Gap 6.2 mmol/L (4.00-12.00); Calcium 8.8 mg/dL (8.7-10.3); Carbon Dioxide 27.8 mmol/L (21.6-31.8); Non-African American GFR(CKD) 94.2 (60.0-200.0); Potassium 4.4 mmol/L (3.5-5.5)
[2020-07-06 11:43] VITALS: BMI 50.7
[2020-07-06 11:46] LABS: Glucose,Whole Blood 106 mg/dL (75-99)
--- NOTE | 2020-07-06 15:06 | P.DS ---
Providers Date of admission: 07/05/20 12:17 Expected date of discharge: 07/06/20 Attending physician: Marta Bee Consults: 07/05/20 06:02 Consult Physician Routine Consulting Provider: [facility] Consult Reason/Comments: regional block Do you want consulting provider notified?: Yes Primary care physician: Tin Stockton - Discharge Diagnosis(es) (1) History of sleeve gastrectomy Current Visit: Yes Status: Acute (2) Hepatomegaly Current Visit: Yes Status: Acute (3) Body mass index (BMI) of 50-59.9 in adult Current Visit: Yes Status: Acute (4) COPD (chronic obstructive pulmonary disease) Current Visit: Yes Status: Acute (5) Fibromyalgia Current Visit: Yes Status: Acute (6) Hypertensive heart disease Current Visit: Yes Status: Acute (7) Morbid (severe) obesity due to excess calories Current Visit: Yes Status: Acute (8) Osteoarthritis of hips, bilateral Current Visit: Yes Status: Acute (9) Osteoarthritis of knees, bilateral Current Visit: Yes Status: Acute (10) Gastroesophageal reflux disease Current Visit: No Status: Acute Hospital Course: POSTOPERATIVE DIAGNOSES: 1. Morbid obesity due to excess calories 2. Body mass index of 51.3, initial 3. Chronic obstructive pulmonary disease 4. Fibromylagia 5. Asthma 6. Gastroesophageal reflux disease 7. Hypertensive heart disease. 8. Osteoarthritis of the knees. 9. Postop nausea and vomiting 10. Osteoarthritis of the hips 11. Osteoarthritis of the knees. 12. Severe epigastric right upper quadrant peritoneal adhesions 12. Severe pelvic adhesions 13. Hepatomegaly with fatty liver disease COURSE: Sybil Rodriguez is a 59-year-old female who comes with lifelong morbid obesitythe presented and underwent a robotic sleeve gastrectomy. Postoperatively, esophagram was unremarkable. She was tolerating diet. Her pain was well-controlled. She is on chronic anticoagulation. Start of her blood thinner was reviewed and discharge instructions. Follow-up in the bariatric Center in 5 days described. PHYSICAL EXAM: VITAL SIGNS: Height 5 foot 4 inches, weight 298 pounds. BMI 51.3 GENERAL: Well-developed in no acute distress. HEENT: No scleral icterus. Extraocular movements grossly intact. Hears conversational speech. No nasal drainage. NECK: Supple without lymphadenopathy. CHEST: Nonlabored respirations with equal bilateral excursions. CARDIOVASCULAR: Regular rate and regular rhythm. Distal 2+ pulses. ABDOMEN: Incision is intact. MUSCULOSKELETAL: No clubbing, cyanosis. NEURO: No focal or lateralizing signs. Cranial nerves 2 through 12 grossly within normal limits. PSYCH: Appropriate affect. Alert and oriented to person, place and time. SKIN: Good skin turgor. Well perfused. STUDIES: Esophagram independent review without obstruction or leak. This is my independent interpretation. PLAN: 1. Bariatric diet reviewed also with bariatric dietitian. 2. Medical reconciliation performed Procedures: OPERATION: 1. Robotic assisted daVinci Xi laparoscopic sleeve gastrectomy with 40-Polish bougie, multiport. 2. Intraoperative esophagogastroduodenoscopy. ANESTHESIA: Gen. local anesthetic ESTIMATED BLOOD LOSS: 10 mL SPECIMENS REMOVED: Sleeve gastrectomy COMPLICATIONS: None. FINDINGS: 1. Negative intraoperative esophagogastrojejunoscopy leak test. 2. Hepatomegaly with fatty liver disease 3. Total of 6 staplers used including 5 - 60 mm green robot shantelle and 1 - 60 mm blue robot loads used to create the gastric sleeve. 4. Sleeve gastrectomy, 28 x 5 cm Patient Condition at Discharge: Good Plan - Discharge Summary Discharge Rx Participant: Yes New Discharge Prescriptions: New Acetaminophen Tab [Tylenol Tab] 1,000 mg PO Q6HR PRN #30 tablet PRN Reason: Pain Ondansetron Odt [Zofran Odt] 4 mg PO Q8HR PRN #9 tab PRN Reason: Nausea bisacodyL [Dulcolax] 5 mg PO DAILY PRN #10 tablet.dr PRN Reason: Constipation Simethicone 40 mg/0.6 ml Drops [Mylicon Drops] 40 mg PO PCHS PRN #30 ml PRN Reason: Gas Omeprazole [PriLOSEC] 40 mg PO DAILY #30 capsule.dr Continue Cetirizine HCl [Zyrtec] 10 mg PO DAILY rOPINIRole HCL [Requip] 0.5 mg PO TID Omeprazole 40 mg PO DAILY Gabapentin 600 mg PO TID Apixaban [Eliquis] 5 mg PO BID Montelukast [Singulair] 10 mg PO DAILY Lisinopril [Prinivil] 10 mg PO DAILY traMADol HCl [Ultram] 50 mg PO BID PRN PRN Reason: Pain Albuterol Nebulized [Ventolin Nebulized] 3 ml INHALATION DIRECTED HYDROcodone/APAP 7.5-325MG [[place] 7.5-325] 7.5 mg PO Q6HR PRN PRN Reason: Moderate Pain Darifenacin Hydrobromide [Darifenacin ER] 15 mg PO DAILY Discontinued Cholecalciferol [Vitamin D3 (25 Mcg = 1000 Iu)] 1,000 unit PO DAILY Meloxicam 15 mg PO DAILY metFORMIN HCL [Glucophage] 500 mg PO BID Discharge Medication List Albuterol Nebulized [Ventolin Nebulized] 3 ml INHALATION DIRECTED 02/28/20 [History] Apixaban [Eliquis] 5 mg PO BID 02/28/20 [History] Cetirizine HCl [Zyrtec] 10 mg PO DAILY 02/28/20 [History] Gabapentin 600 mg PO TID 02/28/20 [History] Lisinopril [Prinivil] 10 mg PO DAILY 02/28/20 [History] Montelukast [Singulair] 10 mg PO DAILY 02/28/20 [History] Omeprazole 40 mg PO DAILY 02/28/20 [History] rOPINIRole HCL [Requip] 0.5 mg PO TID 02/28/20 [History] traMADol HCl [Ultram] 50 mg PO BID PRN 02/28/20 [History] HYDROcodone/APAP 7.5-325MG [[place] 7.5-325] 7.5 mg PO Q6HR PRN 05/27/20 [History] Darifenacin Hydrobromide [Darifenacin ER] 15 mg PO DAILY 06/05/20 [History] Acetaminophen Tab [Tylenol Tab] 1,000 mg PO Q6HR PRN #30 tablet 07/06/20 [Rx] Omeprazole [PriLOSEC] 40 mg PO DAILY #30 capsule. 07/06/20 [Rx] Ondansetron Odt [Zofran Odt] 4 mg PO Q8HR PRN #9 tab 07/06/20 [Rx] Simethicone 40 mg/0.6 ml Drops [Mylicon Drops] 40 mg PO PCHS PRN #30 ml 07/06/20 [Rx] bisacodyL [Dulcolax] 5 mg PO DAILY PRN #10 tablet. 07/06/20 [Rx] Follow up [facility](s[facility]Ref[facility] [place] [place] [facility] [place] [facility]20 Patient Instructions/Handouts: Nutrition after Bariatric Surgery (GEN), Laparoscopic Sleeve Gastrectomy (DC) Activity/Diet/Wound Care/Special Instructions: START ELIQUIS BLOOD THINNER ON WednesdayJULY 08 Liquid diet only for 2 weeks until July 18 No lifting over 4 pounds in 4 weeks, August 04 May Shower. No soaking in bath tubs for 2 weeks, until July 19 Please notify your surgeon if you develop nausea and vomiting including new onset of abdominal pain. Continue to use incentive spirometry to prevent pneumonias. Please continue to ambulate at home to prevent blood clots in legs. Follow-up at the bariatric center. May shower. Dressings to be discontinued by surgeon in the office. Drink 64 oz of fluid daily. Start protein shakes on Wednesday. Notify bariatric center for temp over 101.0, increased pain, drainage from incisions. No straws or carbonated beverages. Liquid diet only. Sugar content should be less than 6 g to avoid dumping syndrome. Take MOM for constipation. CRUSH, OPEN, OR CUT TABLETS LARGER THAN A SIZE OF A TIC TAC Discharge Disposition: HOME SELF-CARE
[2020-07-06 15:11] VITALS: BP 111/64; PULSE 83; TEMP 97.7
[2020-07-07] MEDS ORDERED: bisacodyL 5 MG TABLET.DR PO PRN (08:00)
--- NOTE | 2020-07-07 16:27 | P.PN ---
Progress Note - Text Progress Note Date: 07/07/20 Reached at the patient at her home line. Voicemail message left. Bariatric center to follow up tomorrow.
== END 2020-07-06 16:15 | disposition home or self-care (01) | DRG 621 ==
LOC: 2ORMAIN 12:17 → 4SSUR 17:42
PROVIDERS: ADMIT Surgery Plastic and Reconstructive Surgery; ATTEND Surgery Plastic and Reconstructive Surgery
PROC: 0DB64Z3 Excision of Stomach, Percutaneous Endoscopic Approach, Vertical (ICD-10-PCS; principal; 2020-07-05 14:00)
PROC: 8E0W4CZ Robotic Assisted Procedure of Trunk Region, Percutaneous Endoscopic Approach (ICD-10-PCS; principal; 2020-07-05 14:00)
PROC: 0DJ08ZZ Inspection of Upper Intestinal Tract, Via Natural or Artificial Opening Endoscopic (ICD-10-PCS; principal; 2020-07-05 14:00)
DX: E66.01 Morbid (severe) obesity due to excess calories (principal); Z68.43 Body mass index [BMI] 50.0-59.9, adult; R16.0 Hepatomegaly, not elsewhere classified; J44.9 Chronic obstructive pulmonary disease, unspecified; M79.7 Fibromyalgia; I11.9 Hypertensive heart disease without heart failure; M16.0 Bilateral primary osteoarthritis of hip; N73.6 Female pelvic peritoneal adhesions (postinfective); K21.9 Gastro-esophageal reflux disease without esophagitis; E11.9 Type 2 diabetes mellitus without complications; Z96.653 Presence of artificial knee joint, bilateral; K76.0 Fatty (change of) liver, not elsewhere classified; Z90.49 Acquired absence of other specified parts of digestive tract; Z90.710 Acquired absence of both cervix and uterus; Z90.89 Acquired absence of other organs; Z98.890 Other specified postprocedural states; Z79.01 Long term (current) use of anticoagulants; Z79.1 Long term (current) use of non-steroidal anti-inflammatories (NSAID); Z79.899 Other long term (current) drug therapy; Z88.2 Allergy status to sulfonamides; Z86.718 Personal history of other venous thrombosis and embolism; Z79.84 Long term (current) use of oral hypoglycemic drugs; Z72.0 Tobacco use
CPT/HCPCS: 64488; 74018; 80051; 80053; 82310; 82565; 83735; 84100; 84520; 85025; 85610; 88307; 94640

== ENCOUNTER → 2020-07-10 | Outpatient (CLI) | payer MEDICARE, OTHER ==
--- NOTE | 2020-07-10 16:23 | P.PN ---
Subjective Progress Note Date: 07/10/20 DATE OF SERVICE: 07/10/2020 CHIEF COMPLAINT: Status post sleeve gastrectomy HISTORY OF PRESENT ILLNESS: Sybil Rodriguez is a 59-year-old female status post sleeve gastrectomy, 07/05/20. She is POD 5. She is post-op sleeve gastrectomy. She denies heartburn. She denies infection. She is on protein shakes. She has started her blood thinners. She denies increase bruising. She has expected bruising and pain. At height of 5 feet 4 inches, her ideal body weight is 144 pounds. She comes in 290 pounds from 306 pounds, 1 month ago. She has lost 16 pounds. Her body mass index is 49.9. Lifetime weight loss is 16 pounds. Percent excess weight loss is 10%. She is 146 pounds overweight. PHYSICAL EXAM: VITAL SIGNS: Height 5 foot 4 inches, weight 290 pounds. BMI 49.9 Vital Signs Temp 98 F 07/10/20 16:07 Pulse 83 07/10/20 16:07 Resp 18 07/10/20 16:07 BP 171/102 07/10/20 16:07 Pulse Ox GENERAL: Well-developed in no acute distress. HEENT: No scleral icterus. Extraocular movements grossly intact. Hears conversational speech. No nasal drainage. NECK: Supple without lymphadenopathy. CHEST: Nonlabored respirations with equal bilateral excursions. CARDIOVASCULAR: Regular rate and regular rhythm. Distal 2+ pulses. ABDOMEN: Incisions looks good. No infection or bruising. MUSCULOSKELETAL: No clubbing, cyanosis. NEURO: No focal or lateralizing signs. Cranial nerves 2 through 12 grossly within normal limits. PSYCH: Appropriate affect. Alert and oriented to person, place and time. SKIN: Good skin turgor. Well perfused. ASSESSMENT: 1. Morbid obesity due to excess calories 2. Body mass index of 51.3, initial now up to 49.9 3. Chronic obstructive pulmonary disease 4. Fibromylagia 5. Asthma 6. Gastroesophageal reflux disease 7. Hypertensive heart disease. 8. Osteoarthritis of the knees. 9. Postop nausea and vomiting 10. Osteoarthritis of the hips 11. Osteoarthritis of the knees. 12. Hypercholesterolemia 13. Vitamin D deficiency 14. Gastritis 15. Status post sleeve gastrectomy. PLAN: 1. She reports wanting preventative treatment for yeast infections. Recommend non-oral treatment. 2. Monitor for bruising and bleeding on blood thinners. 3. Follow up 2 weeks. Objective - Vital Signs Vital signs: Vital Signs Temp 98 F 07/10/20 16:07 Pulse 83 07/10/20 16:07 Resp 18 07/10/20 16:07 BP 171/102 07/10/20 16:07 Pulse Ox Intake & Output 07/09/20 07/10/20 07/10/20 18:59 06:59 18:59 Weight 131.995 kg
== END ==
CPT/HCPCS: 97803; G0463; 99211

== ENCOUNTER → 2020-07-17 | Outpatient (CLI) | payer MEDICARE, OTHER ==
[2020-07-17 14:38] VITALS: BP 150/76; PULSE 84; RESP 16; TEMP 98.1; BMI 48.0
--- NOTE | 2020-07-17 15:04 | P.PN ---
Subjective Progress Note Date: 07/17/20 DATE OF SERVICE: 07/17/2020 CHIEF COMPLAINT: Status post sleeve gastrectomy HISTORY OF PRESENT ILLNESS: Sybil Rodriguez is a 59-year-old female status post sleeve gastrectomy, 07/05/20. She is 2 weeks out. She denies heartburn. She is taking her protein shakes once daily. She has decreased pain in the joints. She is drinking fluids. At height of 5 feet 4 inches, her ideal body weight is 144 pounds. Her highest weight is 306 pounds, BMI 52.6. She comes in 279 pounds from 290 pounds, 1 week ago. She has lost 11 pounds in 1 week. Her body mass index is 48.1. Lifetime weight loss is 27 pounds. Percent excess weight loss is 16%. She is 135 pounds overweight. PHYSICAL EXAM: VITAL SIGNS: Height 5 foot 4 inches, weight 279 pounds. BMI 48.1 Vital Signs Temp 98.1 F 07/17/20 14:36 Pulse 84 07/17/20 14:36 Resp 16 07/17/20 14:36 BP 150/76 07/17/20 14:36 Pulse Ox GENERAL: Well-developed in no acute distress. HEENT: No scleral icterus. Extraocular movements grossly intact. Hears conversational speech. No nasal drainage. NECK: Supple without lymphadenopathy. CHEST: Nonlabored respirations with equal bilateral excursions. CARDIOVASCULAR: Regular rate and regular rhythm. Distal 2+ pulses. ABDOMEN: No infection. MUSCULOSKELETAL: No clubbing, cyanosis. NEURO: No focal or lateralizing signs. Cranial nerves 2 through 12 grossly within normal limits. PSYCH: Appropriate affect. Alert and oriented to person, place and time. SKIN: Good skin turgor. Well perfused. ASSESSMENT: 1. Morbid obesity due to excess calories 2. Body mass index of 51.3, initial now 48.1 3. Chronic obstructive pulmonary disease 4. Fibromylagia 5. Asthma 6. Gastroesophageal reflux disease 7. Hypertensive heart disease. 8. Osteoarthritis of the knees. 9. Postop nausea and vomiting 10. Osteoarthritis of the hips 11. Osteoarthritis of the knees. 12. Hypercholesterolemia 13. Vitamin D deficiency 14. Gastritis 15. Status post sleeve gastrectomy. PLAN: 1. Her protein intake is inadequate less than 30 grams daily. Recommend increase protein shakes to 3x daily, 75 to 90 grams daily. 2. Recommend follow up 1 month. 3. She will be off restrictions to at least August 10. Objective - Vital Signs Vital signs: Vital Signs Temp 98.1 F 07/17/20 14:36 Pulse 84 07/17/20 14:36 Resp 16 07/17/20 14:36 BP 150/76 07/17/20 14:36 Pulse Ox Intake & Output 07/16/20 07/17/20 07/17/20 18:59 06:59 18:59 Weight 127.006 kg
== END | disposition home or self-care (01) ==
LOC: BARWHC3 13:04
PROVIDERS: ATTEND Surgery Plastic and Reconstructive Surgery
DX: E66.01 Morbid (severe) obesity due to excess calories (principal); Z98.84 Bariatric surgery status; Z68.42 Body mass index [BMI] 45.0-49.9, adult; E55.9 Vitamin D deficiency, unspecified; E78.00 Pure hypercholesterolemia, unspecified; I11.9 Hypertensive heart disease without heart failure; J44.9 Chronic obstructive pulmonary disease, unspecified; K21.9 Gastro-esophageal reflux disease without esophagitis; M16.0 Bilateral primary osteoarthritis of hip; M17.0 Bilateral primary osteoarthritis of knee
CPT/HCPCS: 99211

== ENCOUNTER → 2020-07-24 | Outpatient (CLI) | payer MEDICARE, OTHER ==
[2020-07-24 13:32] VITALS: BP 145/83; PULSE 78; RESP 16; TEMP 98
[2020-07-24] MEDS: SODIUM CHLORIDE 0.9% 1,000 ML IV SCH ×2 (13:34→14:40)
== END ==
LOC: PROCWHC3 13:21
PROVIDERS: ATTEND Surgery Plastic and Reconstructive Surgery
DX: E86.0 Dehydration (principal)
CPT/HCPCS: 96360; 96361

== ENCOUNTER → 2020-07-25 | Outpatient (CLI) | payer MEDICARE, OTHER ==
[2020-07-25 14:28] LABS: Partial Thromboplastin Time 24.1 sec (22.0-30.0); Prothrombin Time 10.9 sec (9.0-12.0)
[2020-07-25 20:12] LABS: HCT 38.1 % (37.2-46.3); HGB 12.5 g/dL (12.0-15.0); MCH 29.6 pg (27.0-32.0); MCHC 32.8 g/dL (32.0-37.0); MCV 90.3 fL (80.0-97.0); Mean Platelet Volume 10.2 fL (9.5-12.2); Platelet Count 223 X 10*3/uL (140-440); RBC 4.22 X 10*6/uL (4.10-5.20); RDW 13.2 % (11.5-14.5); WBC 2.96 X 10*3/uL (4.50-10.00)
[2020-07-25 22:22] LABS: Hemoglobin A1C 5.3 % (4.0-6.0)
[2020-07-26 03:56] LABS: % Iron Saturation 19.7 (12.00-45.00); African American GFR (CKD) 92.9 (60.0-200.0); Albumin 4.4 g/dL (3.80-4.90); Albumin/Globulin Ratio 2.59 (1.60-3.17); Anion Gap 10.2 mmol/L (4.00-12.00); BUN/Creat Ratio 16.25 Ratio (12.00-20.00); Calcium 9.3 mg/dL (8.7-10.3); Carbon Dioxide 25.8 mmol/L (21.6-31.8); Chol/HDL Ratio 4.25; Globulin 1.7 g/dL (1.6-3.3); LDL Cholesterol,Calculated 135.4 mg/dL (0.0-131.0); Magnesium 2.1 mg/dL (1.5-2.4); Non-African American GFR(CKD) 80.1 (60.0-200.0); Potassium 4.6 mmol/L (3.5-5.5); Total Bilirubin 0.8 mg/dL (0.3-1.2); Total Protein 6.1 g/dL (6.2-8.2); VLDL Calculation 20.6 mg/dL (5.00-40.00)
[2020-07-26 04:04] LABS: Ferritin 117.6 ng/mL (10.0-291.0)
[2020-07-26 04:14] LABS: Folate, Serum 11.8 ng/mL
[2020-07-26 12:39] LABS: Zinc, Serum 92 ug/dL (60-130)
== END | disposition home or self-care (01) ==
LOC: LABWHC1 12:02
PROVIDERS: ATTEND Surgery Plastic and Reconstructive Surgery
DX: N19 Unspecified kidney failure (principal); D50.8 Other iron deficiency anemias; E89.1 Postprocedural hypoinsulinemia; E55.9 Vitamin D deficiency, unspecified; E66.01 Morbid (severe) obesity due to excess calories; K90.89 Other intestinal malabsorption; K74.1 Hepatic sclerosis; K50.90 Crohn's disease, unspecified, without complications
CPT/HCPCS: 36415; 80053; 80061; 82306; 82525; 82607; 82728; 82746; 83036; 83540; 83550; 83735; 83970; 84100; 84134; 84255; 84425; 84443; 84590; 84630; 85027; 85610; 85730

== ENCOUNTER → 2020-08-07 | Outpatient (CLI) | payer MEDICARE, OTHER ==
--- NOTE | 2020-08-07 16:08 | P.PN ---
Subjective Progress Note Date: 08/07/20 DATE OF SERVICE: 08/07/2020 CHIEF COMPLAINT: Status post sleeve gastrectomy HISTORY OF PRESENT ILLNESS: Sybil Rodriguez is a 59-year-old female status post sleeve gastrectomy, 07/05/20. She is 1 month out. She reports severe arthritis of hands, knees, ankles, feet as she was on Mobic. Her mother was discontinued due to her recent surgery. She has lost 20 pounds in 1 month. She wants to be back on Mobic. She denies gastroesophageal reflux disease. At height of 5 feet 4 inches, her ideal body weight is 144 pounds. Her highest weight is 306 pounds, BMI 52.6. She comes in 273 pounds from 279 pounds, 3 weeks ago. She has lost 6 pounds in 3 weeks. Her body mass index is 47.0. Lifetime weight loss is 33 pounds. Percent excess weight loss is 20 %. She is 129 pounds overweight. PHYSICAL EXAM: VITAL SIGNS: Height 5 foot 4 inches, weight 273 pounds. BMI 47.0 Vital Signs Temp 98.1 F 08/07/20 17:00 Pulse 73 08/07/20 17:00 Resp BP 126/73 08/07/20 17:00 Pulse Ox GENERAL: Well-developed in no acute distress. HEENT: No scleral icterus. Extraocular movements grossly intact. Hears conversational speech. No nasal drainage. NECK: Supple without lymphadenopathy. CHEST: Nonlabored respirations with equal bilateral excursions. CARDIOVASCULAR: Regular rate and regular rhythm. Distal 2+ pulses. ABDOMEN: No infection. Incision is completely granulated. No abdominal pain. MUSCULOSKELETAL: No clubbing, cyanosis. NEURO: No focal or lateralizing signs. Cranial nerves 2 through 12 grossly within normal limits. PSYCH: Appropriate affect. Alert and oriented to person, place and time. SKIN: Good skin turgor. Well perfused. LABS: Bariatric labs reviewed with total protein low 6.1. Vitamin D is low at 28.9. Cholesterol elevated 204. ASSESSMENT: 1. Morbid obesity due to excess calories 2. Body mass index of 51.3, initial now 47.0 3. Chronic obstructive pulmonary disease 4. Fibromylagia 5. Asthma 6. Gastroesophageal reflux disease 7. Hypertensive heart disease. 8. Osteoarthritis of the knees. 9. Postop nausea and vomiting 10. Osteoarthritis of the hips 11. Osteoarthritis of the knees. 12. Hypercholesterolemia 13. Vitamin D deficiency 14. Gastritis 15. Status post sleeve gastrectomy. PLAN: 1. For her severe osteoarthritis of her joints, she may be back on Mobic. Recommend omeprazole for gastrointestinal protection. 2. Recommend stop Eliquis as anti-inflammatories with anticoagulants increased risk for chronic blood loss. 3. Follow-up 3 months postop.
--- NOTE | 2020-08-07 16:16 | P.PN ---
Progress Note - Text Progress Note Date: 08/07/20 To whom it may concern: Sybil Rodriguez is under my surgical care. She may not return to work until September 02. Additional recommendations pending further follow-up. Regards, Marta Bee MD FACS
[2020-08-07 17:03] VITALS: BP 126/73; PULSE 73; TEMP 98.1; BMI 47.0
== END | disposition home or self-care (01) ==
LOC: BARWHC3 15:10
PROVIDERS: ATTEND Surgery Plastic and Reconstructive Surgery
DX: E66.01 Morbid (severe) obesity due to excess calories (principal); J44.9 Chronic obstructive pulmonary disease, unspecified; E55.9 Vitamin D deficiency, unspecified; E78.00 Pure hypercholesterolemia, unspecified; I11.9 Hypertensive heart disease without heart failure; K21.9 Gastro-esophageal reflux disease without esophagitis; R11.2 Nausea with vomiting, unspecified; K29.70 Gastritis, unspecified, without bleeding; M79.7 Fibromyalgia; M16.0 Bilateral primary osteoarthritis of hip; M17.0 Bilateral primary osteoarthritis of knee; Z98.84 Bariatric surgery status; Z68.42 Body mass index [BMI] 45.0-49.9, adult
CPT/HCPCS: 97803; G0463; 99211

== ENCOUNTER → 2020-08-28 | Outpatient (CLI) | payer MEDICARE, OTHER ==
[2020-08-28 14:42] VITALS: BP 157/89; PULSE 66; RESP 16; TEMP 98.1; BMI 45.8
--- NOTE | 2020-08-28 14:58 | P.PN ---
Subjective Progress Note Date: 08/28/20 DATE OF SERVICE: 08/28/2020 CHIEF COMPLAINT: Status post sleeve gastrectomy HISTORY OF PRESENT ILLNESS: Sybil Rodriguez is a 59-year-old female status post sleeve gastrectomy, 07/05/20. She is 2 months out. She continues to loose weight. She feels well. She denies gastroesophageal reflux disease. No reports of abdominal pain. Her protein intake is 90 grams daily. She reports her bowels are working and without chronic constipation. She is active and is riding a bike. At height of 5 feet 4 inches, her ideal body weight is 144 pounds. Her highest weight is 306 pounds, BMI 52.6. She comes in 266 pounds from 273 pounds, 3 weeks ago. She has lost 7 pounds in 3 weeks. Her body mass index is 45.8. Lifetime weight loss is 40 pounds. Percent lifetime excess weight loss is 24 %. She is 122 pounds overweight. PHYSICAL EXAM: VITAL SIGNS: Height 5 foot 4 inches, weight 266 pounds. BMI 45.8 Vital Signs Temp 98.1 F 08/28/20 14:39 Pulse 66 08/28/20 14:39 Resp 16 08/28/20 14:39 BP 157/89 08/28/20 14:39 Pulse Ox GENERAL: Well-developed in no acute distress. HEENT: No scleral icterus. Extraocular movements grossly intact. Hears conversational speech. No nasal drainage. NECK: Supple without lymphadenopathy. CHEST: Nonlabored respirations with equal bilateral excursions. CARDIOVASCULAR: Regular rate and regular rhythm. Distal 2+ pulses. ABDOMEN: Nontender. Nondistended MUSCULOSKELETAL: No clubbing, cyanosis. NEURO: No focal or lateralizing signs. Cranial nerves 2 through 12 grossly within normal limits. PSYCH: Appropriate affect. Alert and oriented to person, place and time. SKIN: Good skin turgor. Well perfused. LABS: Reviewed. ASSESSMENT: 1. Morbid obesity due to excess calories 2. Body mass index of 51.3, initial now 45.8 3. Chronic obstructive pulmonary disease 4. Fibromylagia 5. Asthma 6. Gastroesophageal reflux disease 7. Hypertensive heart disease. 8. Osteoarthritis of the knees. 9. Postop nausea and vomiting 10. Osteoarthritis of the hips 11. Osteoarthritis of the knees. 12. Hypercholesterolemia 13. Vitamin D deficiency 14. Gastritis 15. Status post sleeve gastrectomy. PLAN: 1. Continue protein intak over 75 grams daily. 2. Bariatric metabolic panel advised. Objective - Vital Signs Vital signs: Vital Signs Temp 98.1 F 08/28/20 14:39 Pulse 66 08/28/20 14:39 Resp 16 08/28/20 14:39 BP 157/89 08/28/20 14:39 Pulse Ox Intake & Output 08/27/20 08/28/20 08/28/20 18:59 06:59 18:59 Weight 121.109 kg
== END ==
LOC: BARWHC3 14:03
PROVIDERS: ATTEND Surgery Plastic and Reconstructive Surgery
DX: E66.01 Morbid (severe) obesity due to excess calories (principal); E55.9 Vitamin D deficiency, unspecified; E78.00 Pure hypercholesterolemia, unspecified; I11.9 Hypertensive heart disease without heart failure; J44.9 Chronic obstructive pulmonary disease, unspecified; K21.9 Gastro-esophageal reflux disease without esophagitis; K29.70 Gastritis, unspecified, without bleeding; M16.0 Bilateral primary osteoarthritis of hip; M17.0 Bilateral primary osteoarthritis of knee; M79.7 Fibromyalgia; Z68.45 Body mass index [BMI] 70 or greater, adult; Z98.84 Bariatric surgery status; Z88.2 Allergy status to sulfonamides
CPT/HCPCS: 99211

== ENCOUNTER → 2023-08-24 | Outpatient (CLI) | payer MEDICARE, OTHER ==
--- NOTE | 2023-08-25 18:44 | MM ---
Reason for Exam: Screening (asymptomatic). Last mammogram was performed 8 year(s) and 2 month(s) ago. Patient History: Menarche at age 11. First Full-Term at age 21. Hysterectomy at age 40. Postmenopausal. 09/10/2015, Benign Core Biopsy on the left side. Risk Values: Sybil 5 year model risk: 1.7%. NCI Lifetime model risk: 7.1%. Prior Study Comparison: 04/11/2007 Screening Mammogram, [place]. 07/03/2015 Bilateral Screening Mammogram, [facility]. 07/11/2015 Left Diagnostic Mammogram, [facility]. Tissue Density: There are scattered areas of fibroglandular density. Findings: Analyzed By CAD. Microclip left breast in the vicinity of regional calcifications related to prior biopsy. Unchanged areas of bilateral asymmetric densities. There is no suspicious group of microcalcifications or new suspicious mass in either breast. Overall Assessment: Benign, BI-RAD 2 Management: Screening Mammogram of both breasts in 1 year. . Patient should continue monthly self-breast exams. A clinical breast exam by your physician is recommended on an annual basis. This exam should not preclude additional follow-up of suspicious palpable abnormalities. Note on Sybil scores and lifetime risk: 1. A Sybil score greater than 3% is considered moderate risk. If this is the case, consider specialist referral to assess eligibility for a risk reducing agent. 2. If overall lifetime risk for the development of breast cancer is 20% or higher, the patient may qualify for future screening with alternating mammogram and breast MRI. Electronically signed and approved by: Kendrick Mcnally M.D. Radiologist
== END | disposition home or self-care (01) ==
LOC: RADMAMWWP 11:29
PROVIDERS: ATTEND Family Medicine
DX: Z12.31 Encounter for screening mammogram for malignant neoplasm of breast (principal); Z78.0 Asymptomatic menopausal state
CPT/HCPCS: 77063; 77067

== ENCOUNTER → 2023-09-10 | Outpatient (CLI) | payer MEDICARE, OTHER ==
--- NOTE | 2023-09-10 15:03 | US ---
EXAMINATION TYPE: US venous doppler duplex LE RT DATE OF EXAM: 09/10/2023 2:56 PM COMPARISON: US 2010 CLINICAL INDICATION: Female, 62 years old with history of M79.604 PAIN IN RT LEG; Right leg pain SIDE PERFORMED: Right TECHNIQUE: The lower extremity deep venous system is examined utilizing real time linear array sonog mansi with graded compression, doppler sonography and color-flow sonography. VESSELS IMAGED: Common Femoral Vein Deep Femoral Vein Greater Saphenous Vein * Femoral Vein Popliteal Vein Small Saphenous Vein * Proximal Calf Veins (* superficial vessels) Right Leg: Negative for DVT, soft tissue edema noted in area of pt's pain IMPRESSION: 1. Right lower extremity negative for deep venous thrombosis.
[2023-09-11 02:03] LABS: HCT 36.3 % (37.2-46.3); HGB 11.4 g/dL (12.0-15.0); MCH 28.1 pg (27.0-32.0); MCHC 31.4 g/dL (32.0-37.0); MCV 89.6 FL (80.0-97.0); Mean Platelet Volume 9.3 FL (9.5-12.2); NRBC Per 100 WBC 0 X 10*3/uL (0.00-0.01); Platelet Count 193 X 10*3/uL (140-440); RBC 4.05 X 10*6/uL (4.10-5.20); RDW 12.6 % (11.5-14.5); WBC 5.86 X 10*3/uL (4.50-10.00)
[2023-09-11 02:41] LABS: Erythrocyte Sedimentation Rate 5 mm/Hr (0-30)
[2023-09-11 02:59] LABS: ALT 15 U/L (8-44); AST 17 U/L (13-35); Albumin 4.4 g/dL (3.8-4.9); Albumin/Globulin Ratio 2.32 Ratio (1.60-3.17); Alkaline Phosphatase 78 U/L (41-126); BUN/Creat Ratio 24.25 Ratio (12.00-20.00); Blood Urea Nitrogen 19.4 mg/dL (9.0-27.0); Calcium 9.5 mg/dL (8.7-10.3); Carbon Dioxide 26.3 mmol/L (21.6-31.8); Chloride 108 mmol/L (96-109); Globulin 1.9 g/dL (1.6-3.3); Glucose 102 mg/dL (70-110); Potassium 4.3 mmol/L (3.5-5.5); Sodium 146 mmol/L (135-145); Total Bilirubin 0.5 mg/dL (0.3-1.2); Total Protein 6.3 g/dL (6.2-8.2)
== END | disposition home or self-care (01) ==
LOC: RADUSWWP 14:35
PROVIDERS: ATTEND Family Medicine
DX: M79.604 Pain in right leg (principal)
CPT/HCPCS: 36415; 80053; 85027; 85652; 86140

== ENCOUNTER → 2023-10-13 | Outpatient (CLI) | payer MEDICARE, OTHER ==
[2023-10-13 18:39] LABS: Basophils # (A) 0.02 X 10*3/uL (0.00-0.10); Basophils % (A) 0.6 %; Eosinophils # (A) 0.02 X 10*3/uL (0.04-0.35); Eosinophils % (A) 0.6 %; HCT 34.3 % (37.2-46.3); Immature Grans, Automated 0 %; Lymphocytes # (A) 0.55 X 10*3/uL (0.90-5.00); Lymphocytes % (A) 16.9 %; MCH 28.1 pg (27.0-32.0); MCHC 32.1 g/dL (32.0-37.0); MCV 87.7 FL (80.0-97.0); Mean Platelet Volume 9.1 FL (9.5-12.2); Monocytes # (A) 0.25 X 10*3/uL (0.20-1.00); Monocytes % (A) 7.7 %; NRBC Per 100 WBC 0 X 10*3/uL (0.00-0.01); Neutrophils # (A) 2.42 X 10*3/uL (1.80-7.70); Neutrophils % (A) 74.2 %; Platelet Count 166 X 10*3/uL (140-440); RBC 3.91 X 10*6/uL (4.10-5.20); RDW 13.1 % (11.5-14.5); WBC 3.26 X 10*3/uL (4.50-10.00)
[2023-10-13 19:23] LABS: ALT 12 U/L (8-44); AST 18 U/L (13-35); Albumin 4.2 g/dL (3.8-4.9); Albumin/Globulin Ratio 2.33 Ratio (1.60-3.17); Alkaline Phosphatase 87 U/L (41-126); BUN/Creat Ratio 18.11 Ratio (12.00-20.00); Blood Urea Nitrogen 16.3 mg/dL (9.0-27.0); Calcium 8.7 mg/dL (8.7-10.3); Carbon Dioxide 23.8 mmol/L (21.6-31.8); Chloride 105 mmol/L (96-109); Globulin 1.8 g/dL (1.6-3.3); Glucose 132 mg/dL (70-110); Sodium 141 mmol/L (135-145); Total Bilirubin 0.8 mg/dL (0.3-1.2)
== END | disposition home or self-care (01) ==
LOC: LABWHC1 14:31
PROVIDERS: ATTEND Family Medicine
DX: R25.2 Cramp and spasm (principal)
CPT/HCPCS: 36415; 80053; 83735; 85025

== ENCOUNTER → 2023-10-27 | Outpatient (CLI) | payer MEDICARE, OTHER ==
--- NOTE | 2023-12-21 12:38 | US ---
Patient: Sybil Rodriguez A Ordering Physician: Unknown, Unknown ID: [id number] Phone, Pager: Phone: N/A Pager: N/A : 1960 Age/Gender: 63Y, F Primary Location: N/A Procedure: US venous doppler duplex LE RT Study Date: 10/27/2023 2:39:00 PM EXAMINATION TYPE: US venous doppler duplex LE RT DATE OF EXAM: 11/13/2023 3:38 PM COMPARISON: NONE CLINICAL INDICATION: Edema SIDE PERFORMED: Right TECHNIQUE: The lower extremity deep venous system is examined utilizing real time linear array sonog mansi with graded compression, doppler sonography and color-flow sonography. VESSELS IMAGED: Common Femoral Vein Deep Femoral Vein Greater Saphenous Vein * Femoral Vein Popliteal Vein Small Saphenous Vein * Proximal Calf Veins (* superficial vessels) Right Leg: Negative for DVT IMPRESSION: Grayscale, color doppler, spectral doppler imaging performed of the deep veins of the lo wer extremities. There is normal flow, compressibility, vascular waveforms.
== END | disposition home or self-care (01) ==
LOC: RADUSWWP 12:00
PROVIDERS: ATTEND Family Medicine
DX: R22.42 Localized swelling, mass and lump, left lower limb (principal)

== ENCOUNTER → 2023-12-15 | Outpatient (CLI) | payer MEDICARE, OTHER ==
[2023-12-16 02:12] LABS: Basophils # (A) 0.02 X 10*3/uL (0.00-0.10); Basophils % (A) 0.5 %; Eosinophils # (A) 0.16 X 10*3/uL (0.04-0.35); Eosinophils % (A) 3.8 %; HCT 36.8 % (37.2-46.3); HGB 11.3 g/dL (12.0-15.0); Immature Grans, Automated 0 %; Lymphocytes # (A) 0.86 X 10*3/uL (0.90-5.00); Lymphocytes % (A) 20.4 %; MCH 27.1 pg (27.0-32.0); MCHC 30.7 g/dL (32.0-37.0); MCV 88.2 FL (80.0-97.0); Mean Platelet Volume 9.3 FL (9.5-12.2); Monocytes # (A) 0.29 X 10*3/uL (0.20-1.00); Monocytes % (A) 6.9 %; NRBC Per 100 WBC 0 X 10*3/uL (0.00-0.01); Neutrophils # (A) 2.88 X 10*3/uL (1.80-7.70); Neutrophils % (A) 68.4 %; Platelet Count 222 X 10*3/uL (140-440); RBC 4.17 X 10*6/uL (4.10-5.20); RDW 13.1 % (11.5-14.5); WBC 4.21 X 10*3/uL (4.50-10.00)
[2023-12-16 02:13] LABS: Reticulocyte % 1.28 % (0.10-1.80)
[2023-12-16 03:22] LABS: % Iron Saturation 9.75 (12.00-45.00); Ferritin 42.1 ng/mL (10.0-291.0)
== END | disposition home or self-care (01) ==
LOC: LABWHC1 12:35
PROVIDERS: ATTEND Family Medicine
DX: D64.9 Anemia, unspecified (principal)
CPT/HCPCS: 36415; 82607; 82728; 82747; 83540; 83550; 85025; 85045

== ENCOUNTER → 2023-12-15 | Outpatient (CLI) | payer MEDICARE, OTHER ==
--- NOTE | 2023-12-15 21:45 | XR ---
EXAMINATION TYPE: XR ankle complete RT DATE OF EXAM: 12/15/2023 COMPARISON: None HISTORY: Pain TECHNIQUE: 3 view right ankle FINDINGS: There is loss of the ankle joint space greater along the medial aspect of the lateral aspec t. No acute fractures evident. No definite soft tissue swelling identified. There is loss of the plan tar arch. Follow up exams can be performed 7-10 days from acute trauma for continued pain. IMPRESSION: 1. 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 [facility], , 12/15/2023 9:42 PM
== END | disposition home or self-care (01) ==
LOC: RADXRMAIN 12:54
PROVIDERS: ATTEND Family Medicine
DX: M19.071 Primary osteoarthritis, right ankle and foot (principal)

== ENCOUNTER → 2024-03-31 | Outpatient (CLI) | payer MEDICARE, OTHER ==
[2024-03-31 15:41] LABS: % Iron Saturation 43.24 (12.00-45.00); ALT 13 U/L (8-44); AST 17 U/L (13-35); Albumin 4.2 g/dL (3.8-4.9); Albumin/Globulin Ratio 1.91 Ratio (1.60-3.17); Alkaline Phosphatase 82 U/L (41-126); BUN/Creat Ratio 21.29 Ratio (12.00-20.00); Blood Urea Nitrogen 14.9 mg/dL (9.0-27.0); Calcium 8.9 mg/dL (8.7-10.3); Carbon Dioxide 26.8 mmol/L (21.6-31.8); Chloride 106 mmol/L (96-109); Ferritin 40.3 ng/mL (10.0-291.0); Globulin 2.2 g/dL (1.6-3.3); Glucose 92 mg/dL (70-110); Iron 195 UG/DL (50-170); Potassium 4.5 mmol/L (3.5-5.5); Sodium 142 mmol/L (135-145); Total Bilirubin 0.7 mg/dL (0.3-1.2); Total Iron Binding Capacity 451 UG/DL (228-460); Total Protein 6.4 g/dL (6.2-8.2)
[2024-03-31 21:43] LABS: Basophils # (A) 0.02 X 10*3/uL (0.00-0.10); Basophils % (A) 0.7 %; Eosinophils # (A) 0.09 X 10*3/uL (0.04-0.35); HGB 11.4 g/dL (12.0-15.0); Lymphocytes # (A) 0.97 X 10*3/uL (0.90-5.00); Lymphocytes % (A) 32.1 %; MCH 27.3 pg (27.0-32.0); MCHC 31.7 g/dL (32.0-37.0); MCV 86.3 FL (80.0-97.0); Mean Platelet Volume 8.8 FL (9.5-12.2); Monocytes # (A) 0.24 X 10*3/uL (0.20-1.00); Monocytes % (A) 7.9 %; NRBC Per 100 WBC 0 X 10*3/uL (0.00-0.01); Neutrophils # (A) 1.68 X 10*3/uL (1.80-7.70); Neutrophils % (A) 55.6 %; Platelet Count 186 X 10*3/uL (140-440); RBC 4.17 X 10*6/uL (4.10-5.20); RDW 13.3 % (11.5-14.5); Reticulocyte % 1.68 % (0.10-1.80); WBC 3.02 X 10*3/uL (4.50-10.00)
== END | disposition home or self-care (01) ==
LOC: LABWHC1 11:40
PROVIDERS: ATTEND Family Medicine
DX: D64.9 Anemia, unspecified (principal); I10 Essential (primary) hypertension; E55.9 Vitamin D deficiency, unspecified
CPT/HCPCS: 36415; 80053; 82306; 82607; 82728; 82746; 82747; 83540; 83550; 85025; 85045